=== PATIENT | female | born 1970 | race Caucasian/White ===

== ENCOUNTER 2024-08-05 15:51 | Emergency (ER) | payer SELFPAY ==
[~2024-08-05] VITALS: Ht 165.1 cm; Wt 92.0 kg
[2024-08-05 16:29] VITALS: TEMP 36.7
[2024-08-05] MEDS: MORPHINE SULFATE 4 MG/ML INJ (FOR IV/IM USE) IV ONE (18:47)
[2024-08-05] MEDS: KETOROLAC 30MG/ML VIAL IV STA (21:28)
[2024-08-05] MEDS: FENTANYL CITRATE/PF 50MCG/ML 2ML VIAL IV NR (23:38)
[2024-08-05] MEDS: KETAMINE HCL 50 MG/ML 10ML IV ONE (23:41)
[2024-08-05] MEDS: MIDAZOLAM HCL 2 MG/2 ML VIAL IV ONE (23:42)
[2024-08-06 01:12] VITALS: TEMP 98.1; O2SAT 98
[2024-08-06] MEDS ORDERED: MELO-104 MT (02:14)
[2024-08-06] MEDS: FENTANYL CITRATE/PF 50MCG/ML 2ML VIAL IV SCH (02:30)
[2024-08-06] MEDS: KETAMINE HCL 50 MG/ML 10ML IV ONE ×2 (02:31→02:42)
[2024-08-06] MEDS: ONDANSETRON HCL 4MG/2ML INJ IV ONE (04:02)
[2024-08-06 04:33] VITALS: BP 136/59; PULSE 95; RESP 20; O2SAT 97
== END 2024-08-06 04:36 | disposition home or self-care (01) ==
LOC: ER 15:51
DX: S43.014A Anterior dislocation of right humerus, initial encounter (principal); S00.83XA Contusion of other part of head, initial encounter; I10 Essential (primary) hypertension; W18.39XA Other fall on same level, initial encounter; Y93.89 Activity, other specified; Y92.89 Other specified places as the place of occurrence of the external cause; Y99.8 Other external cause status
CPT/HCPCS: 72170; 73030 ×2; 73060; 73070; 73080; 73090; 73560; 70450; 72125; 23650; 96374; 96375 ×2; 99152; 99285; 96376; J3010 ×2; J3490 ×2; J1885; J2250; J2270; Z7610 ×2; J2405